=== PATIENT | female | born 1995 | race Caucasian/White ===

== ENCOUNTER 2020-04-13 12:53 | Emergency (ER) | payer OTHER ==
[~2020-04-13] VITALS: Ht 170.2 cm; Wt 60.3 kg
[2020-04-13] MEDS ORDERED: ONDANSETRON 2MG/ML, 2ML IVPush ONE (13:30)
[2020-04-13] MEDS ORDERED: HYDROmorphone 2 MG/ML, 1ML IVPush ONE (13:30)
[2020-04-13] MEDS ORDERED: CEFAZOLIN 1,000 MG IM ONE (13:30)
[2020-04-13] MEDS ORDERED: DIPH,PERTUSS(ACELL),TET VAC/PF 0.5 ML IM-VACC ONE ×2 (13:30→13:57)
--- NOTE | 2020-04-13 13:41 | NUR ---
TASK RN, JUANITOAY AT BS.
[2020-04-13] MEDS ORDERED: ONDANSETRON 2MG/ML, 2ML ONE (13:56)
[2020-04-13] MEDS ORDERED: HYDROmorphone 2 MG/ML, 1ML ONE (13:56)
[2020-04-13] MEDS ORDERED: CEFAZOLIN PMX 1GM/50ML 50 ML ONE (13:56)
[2020-04-13] MEDS ORDERED: PLEASE ENTER ALLERGIES MC SCH (14:00)
[2020-04-13] MEDS ORDERED: CEFAZOLIN PMX 1GM/50ML 50 ML IV ONE (14:00)
--- NOTE | 2020-04-13 14:10 | NUR ---
MEDICATED FOR PAIN, ABX INFUSING. WOUND CLEANED BY TECH.
[2020-04-13] MEDS ORDERED: LIDOCAINE 1%-EPI 1:100K, 20ML ONE (14:17)
[2020-04-13] MEDS ORDERED: L.E.T SOLUTION TP ONE (14:18)
[2020-04-13 14:39] VITALS: BP 136/85
--- NOTE | 2020-04-13 14:39 | NUR ---
LET APPLIED AT 1426. RESIDENT AT BEDSIDE. VSS
--- NOTE | 2020-04-13 15:39 | NUR ---
SUTURES COMPLETE, SPLINT IN PROCESS
--- NOTE | 2020-04-13 16:29 | NUR ---
Patient/Caregiver given discharge instructions and they have confirmed that they understand the instructions. Patient ambulatory with steady gait.
== END 2020-04-13 16:31 | disposition home or self-care (01) ==
LOC: ED 14:50
DX: S60.372A Other superficial bite of left thumb, initial encounter (principal); S60.471A Other superficial bite of left index finger, initial encounter; W54.0XXA Bitten by dog, initial encounter; Y93.89 Activity, other specified; Y92.830 Public park as the place of occurrence of the external cause; Y99.8 Other external cause status
CPT/HCPCS: 12002; 73130; 90471; 90715; 96365; 96375; 99284; J0690; J1170; J2405